=== PATIENT | female | born 1975 | race Caucasian/White ===

== ENCOUNTER 2016-07-15 01:55 | Emergency (ER) | payer MEDICAID ==
[~2016-07-15] VITALS: Ht 180.3 cm; Wt 68.0 kg
--- NOTE | 2016-07-15 01:55 | NUR ---
PT [facility]. TAKEN TO BED 8
--- NOTE | 2016-07-15 01:56 | NUR ---
Dr. Ludwig evaluating patient at bedside.
[2016-07-15 02:02] VITALS: BP 106/63
--- NOTE | 2016-07-15 02:08 | NUR ---
40/F BIBA TO ED WITH C/O ALCOHOL INTOXICATION. EMS STATES PT WAS FOUND BY [employer] INTOXICATED.; SKIN IS PINK/WARM/DRY; AAOX2, UNABLE TO AMBULATE AT THIS TIME, TRANSFER VIA W/C; LUNGS CLEAR BL; HR EVEN AND REGULAR; NO FEVER, CP, SOB, OR COUGH AT THIS TIME; PATIENT STATES PAIN OF 0/10 AT THIS TIME; VSS; PATIENT POSITIONED FOR COMFORT; HOB ELEVATED; BEDRAILS UP X2; BED DOWN. ER MD MADE AWARE OF PT STATUS.
[2016-07-15] MEDS ORDERED: NACL 0.9% 1,000 ML IV ONE (02:10)
--- NOTE | 2016-07-15 03:31 | NUR ---
Patient appears to be resting comfortably in bed. Vital Signs within normal limits. Respirations even and unlabored.
--- NOTE | 2016-07-15 04:31 | NUR ---
Patient appears to be resting comfortably in bed. Vital Signs within normal limits. Respirations even and unlabored.
--- NOTE | 2016-07-15 05:20 | NUR ---
Dr. Ludwig re-evaluating patient at bedside.
--- NOTE | 2016-07-15 05:30 | NUR ---
Patient appears to be resting comfortably in bed. Vital Signs within normal limits. Respirations even and unlabored.
--- NOTE | 2016-07-15 06:23 | NUR ---
Note chau in EDM - 07/15/16 at 0656 by [facility] Patient discharged with v/s stable. Written and verbal after care instructions given and explained. Patient verbalized understanding. Wheel Chair Assisted with to home. MOBILE ON W/C. All questions addressed prior to discharge. Advised to follow up with PMD.
--- NOTE | 2016-07-15 06:43 | NUR ---
PT MOVED TO BED 7
--- NOTE | 2016-07-15 06:51 | NUR ---
Dr. Ludwig re-evaluating patient at bedside.
--- NOTE | 2016-07-15 06:53 | NUR ---
PATIENT CAME BACK IN DUE TO LT. LEG PAIN.
[2016-07-15] MEDS ORDERED: KETOROLAC 60 MG/2 ML VIAL IM ONE (07:00)
--- NOTE | 2016-07-15 07:14 | NUR ---
TOOK OVER CARE OF PT. RECEIVED REPORT FROM HANS ABEL.
--- NOTE | 2016-07-15 07:21 | NUR ---
ASSESSED PT. STATES MEDICATION HAS NOT WORKED FOR HER LEFT LEG. PT HAS BEEN DISCHARGED WITH SCRIPTS. PT STATES SHE WANTS TO WAIT FOR [employer] TO ARRANGE DISCHARGE PLAN.
--- NOTE | 2016-07-15 07:44 | NUR ---
PT RESTING ON AND OFF WITH PERIODS OF CRYING. APPEARS TO BE SLIGHTLY INTOXICATED. Addendum: 07/15/16 at 0747 by [facility] PT SLEEPING COMFORTABLY AT THIS TIME. PERIODS OF WAKEFULNESS WITH INTERMITTANT CRYING. APPEARS TO BE INTOXICATED.
--- NOTE | 2016-07-15 08:23 | NUR ---
PT SLEEPING WITH NO WAKEFUL PERIODS FOR LAST 40MIN.
--- NOTE | 2016-07-15 09:09 | NUR ---
PT SLEEPING COMFORTABLY.
--- NOTE | 2016-07-15 09:40 | NUR ---
SS NOTE: I SPOKE WITH PT BEDSIDE WITH BOLIVAR FROM [facility]. I PROVIDED PT WITH HOMELESS RESOURCES, ETOH/SUBSTANCE ABUSE RESOURCES AND A BUS PASS. PT STATED THAT SHE DID NOT HAVE ANY ADDITIONAL QUESTIONS OR CONCERNS AT THIS TIME.
--- NOTE | 2016-07-15 09:45 | NUR ---
PT SPOKE WITH DIRECTOR OF VENDOR MANAGEMENT. RESOURCES LEFT AT BEDSIDE. PT HAS BEEN DISCHARGED AND IS REFUSING TO GET DRESSED AND GET IN HER WHEELCHAIR. STATES SHE CANT DUE TO PAIN IN HER LEG. OFFERED HELP WITH GETTING DRESSED AND PT REFUSES. [employer] AT BEDSIDE. PT CONTINUES TO REFUSE TO LEAVE.
--- NOTE | 2016-07-15 10:14 | NUR ---
PT RESTING COMFORTABLY WITH NO SIGNS OR SYMPTOMS OF DISTRESS AT THIS TIME.
--- NOTE | 2016-07-15 10:25 | NUR ---
[place] [employer] AT BEDSIDE.
[2016-07-15 10:44] VITALS: BP 112/59
--- NOTE | 2016-07-15 10:45 | NUR ---
Patient discharged with v/s stable. Written and verbal after care instructions given and explained. Patient alert, oriented and verbalized understanding of instructions. LEFT BY WC ACCOMPANIED BY [facility]. All questions addressed prior to discharge. Patient advised to follow up with PMD. Rx of TORADOL AND MOTRIN given. Patient educated on indication of medication including possible reaction and side effects. Opportunity to ask questions provided and answered.
== END 2016-07-15 10:45 | disposition home or self-care (01) ==
LOC: MED 01:55
DX: F10.129 Alcohol abuse with intoxication, unspecified (principal); F15.10 Other stimulant abuse, uncomplicated; M79.662 Pain in left lower leg; Y90.8 Blood alcohol level of 240 mg/100 ml or more
CPT/HCPCS: 36415; 80053; 80305; 81001; 81025; 85025; 93005; 96360; 96361; 96372; 99285; G0480; G0482; J1885; J7030